=== PATIENT | male | born 2000 | race Caucasian/White ===

== ENCOUNTER 2021-07-25 14:17 | Emergency (ER) | payer OTHER, SELFPAY ==
[2021-07-25 15:39] VITALS: PULSE 73; RESP 16; TEMP 36.4; O2SAT 98; BMI 31.8
[2021-07-25 15:43] VITALS: BP 122/65
--- NOTE | 2021-07-25 15:44 | XR_ITS ---
WS: [id number] Chest with left rib detail, 07/25/2021 Clinical Data: rib pain/injury Comparison: Left rib detail, 05/30/2017. Findings: The lungs show no nodules, masses, or effusions. The heart is normal. No pneumonia or pneumothorax is seen. The ribs are intact. No rib fractures seen. No subcutaneous emphysema is present. XR/XR ribs LT mn 3V w CXR1V [id number] Impression: Negative chest with left rib detail.
--- NOTE | 2021-07-25 16:08 | ED_ITS ---
HPI - Chest Pain General: Chief Complaint: General Medical Stated Complaint: L RIB PAIN Time Seen by Provider: 07/25/21 16:06 Source: patient Mode of arrival: ambulatory Limitations: no limitations History of Present Illness: HPI narrative: Patient is a nice 20-year-old male who presents to ED today with complaint of left lower rib pain. Patient tells me he has had pain intermittently to this particular area ever since he was in high school. He states at one point he was told he had a broken rib. Patient has never noticed any masses or bulges to the lower chest or abdomen. He states the area flared up a few weeks ago but felt like it was improving. He states yesterday he was lifting above and felt something pop and immediately began having worsening pain. Patient denies pain radiating. He has no difficulty breathing or shortness of breath. Denies abdominal pain, nausea, vomiting. MD complaint: chest pain Onset (ago): day(s) Prior episodes: Yes Onset: other (while lifting) Pain location: left chest Pain radiation: none Severity: moderate Relieving factors: rest Exacerbating factors: movement Associated symptoms: Deny abdominal pain, dyspnea, fever(s), nausea, palpitations, syncope or vomiting Treatment prior to arrival: none Risk Factors: Coronary artery disease risk factors: none Thoracic aortic dissection risk factors: none Review of Systems Const: Denies: fever(s) Eyes: Denies: change in vision ENMT: Denies: throat pain or odynophagia Card: Reports: chest pain (rib pain); Denies: palpitations, irregular heart rhythm, edema, swelling of feet/ankles, lightheadedness, syncope, pre-syncope, dyspnea on exertion or orthopnea Resp: Denies: dyspnea GI: Denies: abdominal pain, nausea, vomiting or diarrhea : Denies: flank pain Musc: Denies: back pain Neuro: Denies: headache(s), difficulty walking or dizziness Physical Exam Const: COMMON NORMALS: no acute distress, average body habitus, patient oriented x3, no limitations, healthy appearing, alert and well nourished GENERAL APPEARANCE: cooperative ORIENTATION/CONSCIOUSNESS: Yes awake, Yes oriented to person, Yes oriented to place and Yes oriented to time HENMT: COMMON NORMALS: normocephalic and atraumatic HEAD & SCALP: normocephalic and atraumatic Chest: COMMONS NORMALS: normal inspection of the chest Chest images (male): 1. TTP lower L anterior ribs; no crepitus; palpation reproduces pain; no abdominal hernias palpated; lungs CTA Resp: COMMON NORMALS: normal respiratory effort and clear to auscultation bilaterally AUSCULTATION: clear to auscultation bilaterally Cardio: COMMON NORMALS: regular rate and regular rhythm RATE: regular rate RHYTHM: regular rhythm GI: COMMON NORMALS: Normal to inspection, nondistended, normoactive bowel sounds present, Soft to palpation, non-tender, No hepatosplenomegaly present and no masses PALPATION: Yes Soft to palpation and Yes No hepatosplenomegaly present : COMMON NORMALS: Yes no CVA tenderness BLADDER/KIDNEY EXAM: Yes no CVA tenderness Back/Pelvis: COMMON NORMALS: no CVA tenderness Neuro: COMMON NORMALS: patient oriented x3 SENSORIUM/ORIENTATION: Yes alert, Yes oriented to person, Yes oriented to place and Yes oriented to time Skin: COMMON NORMALS: no rashes or lesions noted GENERAL SKIN EXAM: no rashes or lesions noted Course Vital Signs: Vital signs: Vital Signs Temperature 97.5 F L 07/25/21 15:39 Pulse Rate 73 07/25/21 15:39 Respiratory Rate 16 07/25/21 15:39 Blood Pressure 122/65 07/25/21 15:43 Pulse Oximetry 98 07/25/21 15:39 MDM - Chest Pain MDM Narrative: Medical decision making narrative: XRs negative. History states that patient has had this pain intermittently for several years now. I think at this time he is stable for discharge from the ED with recommendations to follow-up with primary care if symptoms persist. Imaging Data^: CXR w/ L ribs: Radiologist's impression: [address] [address] XRay Report Signed Patient: Ochoa Ibrahim Unit #: [id number] : 2000 59 Age/Sex: 20 / M ADM Date: 07/25/21 Loc: ER Room/Bed: Attending Dr: Ordering Provider/Ordering MD: Thea Oliver Date of Service: 07/25/21 Procedure(s): XR ribs LT mn 3V w CXR1V [id number] Accession Number(s): [id number] Report Number: [id number] WS: [id number] Chest with left rib detail, 07/25/2021 Clinical Data: rib pain/injury Comparison: Left rib detail, 05/30/2017. Findings: The lungs show no nodules, masses, or effusions. The heart is normal. No pneumonia or pneumothorax is seen. The ribs are intact. No rib fractures seen. No subcutaneous emphysema is present. XR/XR ribs LT mn 3V w CXR1V [id number] Impression: Negative chest with left rib detail. 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
== END 2021-07-25 16:27 | disposition home or self-care (01) ==
PROVIDERS: Emergency Provider Physician Assistant
DX: R07.81 Pleurodynia (principal)
CPT/HCPCS: 71101; 99282